=== PATIENT | female | born 1955 | race Caucasian/White ===

== ENCOUNTER 2019-01-29 05:42 | Observation (INO) ==
--- NOTE | 2019-01-21 08:50 | EKG Report ---
Test Performed on : 01/21/2019 08:44:34 AM Test Reason : PAT Blood Pressure : / mmHG Vent. Rate : 068 BPM Atrial Rate : 068 BPM P-R Int : 150 ms QRS Dur : 082 ms QT Int : 378 ms P-R-T Axes : 072 025 047 degrees QTc Int : 401 ms Normal sinus rhythm. Normal ECG When compared with ECG of 02-OCT-2018 07:38, Criteria for Septal infarct are no longer present Unconfirmed Result
[2019-01-21 09:54] LABS: URINE SOURCE CLEAN CATCH
[2019-01-21 09:56] LABS: BASO# 0.06 X1000 (0.0-0.2); BASO% 1.1 % (0.0-0.8); EOS# 0.34 X1000 (0.0-0.7); HEMATOCRIT 42.9 % (37.0-47.0); HEMOGLOBIN 13.5 g/dL (12.0-16.0); LYMPH# 1.16 X1000 (1.2-3.4); LYMPH% 20.4 % (20.5-51.1); MCHC 31.5 g/dL (33-37); MCV 85.8 FL (81-99); MONO# 0.57 X1000 (0.11-0.59); MPV 10.8 FL (7.4-10.4); NEUT# 3.56 X1000 (1.4-6.5); NEUT% 62.5 % (42.2-75.2); PLT 281 X1000 (130-400); RDW 13.4 % (11.5-14.5); WBC 5.69 X1000 (4.8-10.8)
[2019-01-21 09:58] LABS: BILIRUBIN URINE NEGATIVE (NEGATIVE); BLOOD URINE NEGATIVE (NEGATIVE); COLOR STRAW; GLUCOSE URINE NEGATIVE (NEGATIVE); KETONE URINE NEGATIVE (NEGATIVE); LEUKOCYTES URINE SMALL (NEGATIVE); NITRITE URINE NEGATIVE (NEGATIVE); PH URINE 6.5; PROTEIN URINE NEGATIVE (NEGATIVE); TURBIDITY URINE CLEAR (CLEAR); UR EPITHELIAL CELLS <10 /HPF (<10); URINE BACTERIA NEGATIVE /HPF; URINE RBC <10 /HPF (<10); URINE WBC <10 /HPF (<10); UROBILINOGEN URINE NORMAL (NORMAL)
[2019-01-21 10:07] LABS: INR 0.87; PROTIME 12.5 Seconds (11.0-16.0)
[2019-01-21 10:08] LABS: PTT 27.9 Seconds (22.3-41.8)
[2019-01-21 10:16] LABS: AGAP 10; BUN 15 mg/dL (8-22); CALCIUM 9.3 mg/dL (8.8-10.2); CHLORIDE 101 mmol/L (98-107); COSMO 275; CREATININE 0.7 mg/dL (0.5-0.9); ESTIMATED GFR > 60; GLUCOSE 97 mg/dL (70-104); POTASSIUM 4.3 mmol/L (3.5-5.1); SODIUM 137 mmol/L (136-145); TCO2 26 mmol/L (25-35)
[2019-01-29] MEDS ORDERED: KEFZOL 2 GM/D5W 2 GM/50 ML IVPB ONE (06:40)
[2019-01-29] MEDS ORDERED: LYRICA ONE (06:40)
[2019-01-29] MEDS ORDERED: LR 1,000 ML ONE (06:40)
[2019-01-29] MEDS ORDERED: CELEBREX ONE (06:40)
[2019-01-29] MEDS ORDERED: COLACE ONE (06:40)
[2019-01-29] MEDS ORDERED: PEPCID ONE (06:40)
[2019-01-29] MEDS ORDERED: REGLAN ONE (06:40)
[2019-01-29] MEDS ORDERED: DECADRON ONE (06:44)
[2019-01-29] MEDS ORDERED: DIPRIVAN 1% ONE (06:52)
[2019-01-29] MEDS ORDERED: VERSED ONE (06:53)
[2019-01-29] MEDS ORDERED: VANCOMYCIN ONE (07:20)
[2019-01-29] MEDS ORDERED: TORADOL ONE (07:20)
[2019-01-29] MEDS ORDERED: SENSORCAINE-MPF 0.5%/EPI 1:200,000 ONE (07:20)
[2019-01-29] MEDS ORDERED: SODIUM CHLORIDE 0.9% ONE (07:20)
[2019-01-29] MEDS ORDERED: CYKLOKAPRON 1,000 MG/NS 1,000 MG/100 ML IVPB ONE ×2 (07:20→07:21)
[2019-01-29] MEDS ORDERED: DURAMORPH ONE (07:20)
[2019-01-29] MEDS ORDERED: NEOSPORIN G.U. IRRIGANT ONE (07:21)
[2019-01-29] MEDS ORDERED: EXPAREL 1.3% ONE (07:21)
[2019-01-29] MEDS ORDERED: XYLOCAINE-MPF 2% ONE ×2 (07:46→11:35)
[2019-01-29] MEDS ORDERED: ZOFRAN ONE (07:50)
[2019-01-29] MEDS ORDERED: QUELICIN (DOSE) ONE (07:50)
[2019-01-29] MEDS ORDERED: FENTANYL ONE (07:51)
[2019-01-29] MEDS ORDERED: ROBINUL ONE (07:53)
[2019-01-29] MEDS ORDERED: OFIRMEV 1000 MG/ISOTONIC SOLN 1,000 MG/100 ML BOTTLE ONE (07:56)
[2019-01-29] MEDS ORDERED: KETAMINE ONE (08:36)
[2019-01-29] MEDS ORDERED: EPHEDRINE ONE (09:07)
[2019-01-29 10:56] LABS: URINE SOURCE CATH
[2019-01-29 10:59] LABS: BILIRUBIN URINE NEGATIVE (NEGATIVE); BLOOD URINE NEGATIVE (NEGATIVE); COLOR YELLOW; GLUCOSE URINE NEGATIVE (NEGATIVE); KETONE URINE NEGATIVE (NEGATIVE); LEUKOCYTES URINE NEGATIVE (NEGATIVE); NITRITE URINE NEGATIVE (NEGATIVE); PROTEIN URINE NEGATIVE (NEGATIVE); SP GRAVITY URINE 1.016; TURBIDITY URINE CLEAR (CLEAR); UROBILINOGEN URINE NORMAL (NORMAL)
[2019-01-29 11:01] LABS: UR EPITHELIAL CELLS <10 /HPF (<10); URINE BACTERIA NEGATIVE /HPF; URINE RBC <10 /HPF (<10); URINE WBC <10 /HPF (<10)
[2019-01-29] MEDS: ARIMIDEX PO SCH (11:12)
[2019-01-29] MEDS: LOTENSIN PO SCH (11:12)
[2019-01-29] MEDS ORDERED: OXY IR ONE (12:10)
[2019-01-29] MEDS ORDERED: NS 1,000 ML ONE (12:10)
--- NOTE | 2019-01-29 12:17 | Diag Imaging Result Doc PS360 ---
KNEE 1-2 VIEWS-RIGHT - 01/29/2019 INDICATION: r tka TECHNIQUE: Two views COMPARISON: None FINDINGS: There has been right total knee arthroplasty with a long stemmed, hinged prosthesis. No hardware fracture or loosening. Alignment is anatomic. IMPRESSION: No complication. Electronically signed by Micheal Morris 01/29/2019 12:15 PM
[2019-01-29] MEDS ORDERED: OXY IR PO PRN (13:30)
[2019-01-29] MEDS ORDERED: ZOFRAN PO PRN (13:30)
[2019-01-29] MEDS ORDERED: MORPHINE IV PRN ×3 (13:30)
[2019-01-29] MEDS ORDERED: NS 1,000 ML IV SCH (14:00)
[2019-01-29] MEDS: OXY IR PO PRN (15:22)
[2019-01-29] MEDS: KEFZOL 2 GM/D5W 2 GM/50 ML IVPB IV SCH (15:30)
[2019-01-29] MEDS: TYLENOL PO SCH ×2 (17:30→20:55)
--- NOTE | 2019-01-29 18:46 | OPERATIVE NOTE ---
PROCEDURE DATE: 01/29/2019 PREOPERATIVE DIAGNOSIS: Degenerative osteoarthritis of the right knee. POSTOPERATIVE DIAGNOSIS: Degenerative osteoarthritis of the right knee. PROCEDURE: Right total knee arthroplasty with a DePuy PFC Sigma size 2.5 femur with a size 40 mm femoral sleeve with a 75 mm x 14 mm universal fluted stem and size 2.5 tibial tray with a size 37 metaphyseal sleeve and a 75 x 12 mm universal fluted stem, a 15 mm rotating platform tibial insert and a 32 mm medial round dome patella. SURGEON: Raudel Barraza MD SENIOR DATA WAREHOUSE DEVELOPER: HOSSEIN Del Cid SECOND FEEDER WORKER POWER UNIT OPERATOR: Albert Hendrickson RN ANESTHESIA: General. INTRAVENOUS FLUIDS: 2000 mL lactated Ringer's. ESTIMATED BLOOD LOSS: 150 mL. TOURNIQUET TIME: 119 minutes at 350 mmHg. COMPLICATIONS: None. INDICATION: The patient is a pleasant 63-year-old female with a chronic history of pain and discomfort of the right knee. X-rays revealed significant degenerative arthritis. Recommendation to proceed with right total knee arthroplasty was offered. Risks and benefits of surgery were explained, including the risks of anesthesia, , bleeding, infection, failure to relieve pain, postoperative stiffness, nerve injury, blood clots, and other imponderables. All questions were answered and the patient and family wished to proceed with surgery. DETAILS OF THE OPERATION: The patient was taken to the operating room and placed supine on the operating table. Once adequate anesthesia was obtained, patient's right lower extremity was subsequently prepped and draped in the usual sterile fashion. An Esmarch was used to exsanguinate the right lower extremity and the tourniquet was inflated to 350 mmHg. A standard anterior incision was made with a skin knife. Medial and lateral skin envelopes were developed. Standard medial parapatellar arthrotomy was then performed. Patella fat pad was excised. Retractors were then placed. A starting reamer was then passed initially into the intramedullary canal as well as the tibia. Sequential reamings up to size 12 in the tibia and a size 14 in the femur. With the stem remaining in the distal femur, the distal femoral cutting block was pinned in position. Distal femoral stem was then removed and distal femoral cut was then performed on the distal femur. Attention was then turned to the proximal tibia where a provisional resection was then performed. After this had been performed, the medial and lateral menisci were excised. The proximal tibia was overreamed. Sequential broaching was then performed up to a size 37. A trial 2.5 mm tibia with a 37 mm metaphyseal sleeve, and a 75 x 12 mm stem was then placed and had good fit. Attention was turned to the femur. It was overreamed. Sequential broaching was then performed up to a size 40 and had good fit. Using the chamfer cutting block, it was pinned in position with the knee placed at 90 degrees to set the rotation. Anterior, posterior, and chamfer cuts were then made. Box cutting guide was then placed on the distal femur and a box cut was performed. Trial femoral component with the sleeve and stem was then placed and had good fit. The trial tibial insert was then placed and had good soft tissue balancing. The patella was everted and resected in standard fashion. It had significant wear. It was resected. Patient was noted have a very small width of the patella. After resection had been performed, a size 32 appeared to be the correct size. The drills were drilled. Trial patella was then placed. After this had been performed, the trial components were removed. Copious irrigation was then performed with antibiotic pulsatile lavage. The components were assembled on the back table. Cementing was then performed. The sequential cementing was then performed first with the tibial construct followed by the femoral construct and the trial tibial insert was then placed in full extension. Axial loading was maintained while cement cured. The patellar component was subsequently cemented. It had some slight overhang of the lateral compartment and was cemented in standard fashion. After cement had cured, peripheral cement was removed with a small [place]. A size 15 mm rotating platform tibial insert appeared to the correct size. The trial component was removed. While cement was curing, Exparel was placed in the deep soft tissue, as well as the subcutaneous tissue. Exparel was then placed in the deep posterior capsule while exchanging the trial tibial insert. The wound was copiously irrigated with antibiotic pulsatile lavage. A 15 mm rotating platform tibial insert was then placed. The knee was then taken through a range of motion and had good soft tissue balance and good range of motion. It did have some lateral translation of the patella. Therefore, a lateral release was performed. It had better patellofemoral tracking after this had been conducted. After this had been performed, the 1/8-inch Hemovac drain was placed and was not sewn in. Copious irrigation was then performed once again with antibiotic pulsatile lavage. A #1 Vicryl was used to repair the arthrotomy followed by 2-0 Vicryl to repair the subcutaneous tissue, and skin [place]. Adaptic, sterile 4x4s, Webril, cryo unit, and Segundo wrap were applied to the right lower extremity. Patient tolerated the procedure well with no complications and was transferred to recovery room in stable condition. cc: Raudel Barraza MD
[2019-01-29] MEDS: PERIDEX MT SCH (20:55)
[2019-01-30] MEDS: KEFZOL 2 GM/D5W 2 GM/50 ML IVPB IV SCH (00:26)
[2019-01-30] MEDS: OXY IR PO PRN ×2 (00:26→07:29)
[2019-01-30] MEDS: TYLENOL PO SCH ×2 (03:00→08:45)
[2019-01-30] MEDS ORDERED: XARELTO PO SCH (06:00)
[2019-01-30 06:07] LABS: HEMOGLOBIN 10.2 g/dL (12.0-16.0)
--- NOTE | 2019-01-30 06:28 | PROGRESS NOTE ---
DATE: 01/30/2019 SUBJECTIVE: The patient is a pleasant 63-year-old female who is 1 day status post right total knee arthroplasty. She is currently resting comfortably. OBJECTIVE: On physical exam, the patient's dressing is intact. Calf is soft. She is able for straight leg raise. She has active dorsiflexion and plantar flexion. LABORATORY DATA: Her labs are pending. IMPRESSION: Postoperative day #1 status post right total knee arthroplasty. PLAN: At this point, we will plan on discharging home if she is mobilizing well with physical therapy. We will arrange for home physical therapy. Patient will follow up on 02/11/2019. cc: Raudel Barraza MD
[2019-01-30 06:29] LABS: AGAP 10; BUN 17 mg/dL (8-22); CALCIUM 8.6 mg/dL (8.8-10.2); CHLORIDE 102 mmol/L (98-107); COSMO 274; CREATININE 0.7 mg/dL (0.5-0.9); ESTIMATED GFR > 60; GLUCOSE 107 mg/dL (70-104); POTASSIUM 4.5 mmol/L (3.5-5.1); SODIUM 136 mmol/L (136-145); TCO2 24 mmol/L (25-35)
[2019-01-30] MEDS: PERIDEX MT SCH (08:44)
[2019-01-30] MEDS: ARIMIDEX PO SCH (08:45)
[2019-01-30 11:33] VITALS: BP 136/78
[2019-01-30] MEDS: LOTENSIN PO SCH (11:39)
== END 2019-01-30 11:40 | disposition home health service (06) ==
LOC: OR 05:42 → 4N 05:42
PROVIDERS: ADMIT Orthopaedic Surgery Adult Reconstructive Orthopaedic Surgery; ATTEND Orthopaedic Surgery Adult Reconstructive Orthopaedic Surgery
CPT/HCPCS: 73560; 80048; 81001; 85014; 85018; 85025; 85610; 85730; 86850; 86900; 86901; 88305; 88311; 93005; 93010; 97116; 97162; 97530; A9270; C9290; J0131; J0330; J0690; J1100; J1885; J2250; J2274; J2275; J2405; J3010; J3370; J7030; J7120; Q9974; S0170